=== PATIENT | male | born 1985 | race Caucasian/White ===

== ENCOUNTER 2016-12-07 15:17 | Emergency (ER) | payer MEDICAID, OTHER ==
[2016-12-07 15:26] VITALS: BP 115/74; PULSE 78; RESP 18; TEMP 98.1; O2SAT 100
--- NOTE | 2016-12-07 16:38 | C.PDOC ---
History Of Present Illness The patient, a 31 y/o male, presents to the ED for evaluation of an itchy rash which began around 3 days ago. Patient notes the rash initially started in his bilateral armpits, then spread to his upper extremities. Patient denies presence of rash on bilateral lower extremities. Patient notes he used an aerosol deodorant prior to the development of his symptoms. Patient notes he has used similar aerosol deodorant in the past and experienced a similar rash which self-resolved. Patient notes the rash is now worse than before and presents to the ED for further evaluation. Otherwise, he denies fever, chills, shortness of breath, throat swelling sensation, difficulty swallowing. Time Seen by Provider: 12/07/16 15:52 Chief Complaint (Nursing): Abnormal Skin Integrity History Per: Patient History/Exam Limitations: no limitations Onset/Duration Of Symptoms: Days (3) Current Symptoms Are (Timing): Still Present Location Of Injury: Right: Arm, Left: Arm Quality Of Symptoms: Itching Additional History Per: Patient Past Medical History Reviewed: Historical Data, Nursing Documentation, Vital Signs Vital Signs: Last Vital Signs Temp 98.1 F 12/07/16 15:23 Pulse 78 12/07/16 15:23 Resp 18 12/07/16 17:02 BP 115/74 12/07/16 15:23 Pulse Ox 100 12/07/16 22:42 - Medical History PMH: No Chronic Diseases Surgical History: No Surg Hx Family History: States: Unknown Family Hx - Social History Hx Alcohol Use: No Hx Substance Use: No Review Of Systems Except As Marked, All Systems Reviewed And Found Negative. ENT: Negative for: Throat Swelling Respiratory: Negative for: Shortness of Breath Skin: Positive for: Rash (b/l armpits, b/l upper extremities ) Physical Exam - Physical Exam Appears: Non-toxic, No Acute Distress Skin: Warm, Dry, Rash (erythematous, maculopapular, blanching rash mostly concentrated on axilla and scattered to bilateral anterior upper extremities. mildly concentrated on lateral torso ) Head: Atraumatic, Normacephalic Eye(s): bilateral: Normal Inspection, EOMI Oral Mucosa: Moist Tongue: No Swelling Lips: No Swelling Throat: Normal, No Erythema, No Exudate, No Drooling Neck: Normal ROM, Supple Chest: Symmetrical, No Deformity, No Tenderness Cardiovascular: Rhythm Regular, No Murmur Respiratory: Normal Breath Sounds, No Rales, No Rhonchi, No Wheezing Extremity: Normal ROM, Capillary Refill (less than 2 seconds ) Neurological/Psych: Oriented x3, Normal Speech, Normal Cognition Gait: Steady ED Course And Treatment O2 Sat by Pulse Oximetry: 100 (on RA) Pulse Ox Interpretation: Normal Progress Note: Patient received Benadryl PO and Prednisone PO. On reassessment, pt is resting comfortably, showing no signs of respiratory distress, and reports an improvement in his symptoms. Discussed that aerosol deoderant may possibly be causing the rash and pt was advised to discontinue contact with allergens. Patient is advised to follow up with technical adjuster within 2-5 days for further evaluation. Disposition - Disposition Disposition: HOME/ ROUTINE Disposition Time: 16:38 Condition: STABLE Additional Instructions: Avoid any potential allergens including deodorant spray. Follow up with your primary medical doctor or clinic in 2-5 days for further evaluation. Take medications as prescribed. Return to the emergency department at any time if symptoms persist or worsen. Prescriptions: DiphenhydrAMINE [Benadryl] 25 mg PO Q6 #20 cap predniSONE [Prednisone] 40 mg PO DAILY #8 tab Instructions: Acute Rash (ED) - Clinical Impression Clinical Impression: Rash, Contact dermatitis - PA / [employer] / Resident Statement MD/DO has reviewed & agrees with the documentation as recorded. - Scribe Statement The provider has reviewed the documentation as recorded by the Scribe (Aaliyah Tolentino) All medical record entries made by the Scribe were at my direction and personally dictated by me. I have reviewed the chart and agree that the record accurately reflects my personal performance of the history, physical exam, medical decision making, and the department course for this patient. I have also personally directed, reviewed, and agree with the discharge instructions and disposition.
== END 2016-12-07 17:02 | disposition home or self-care (01) ==
LOC: C.ER 15:17
DX: L25.9 Unspecified contact dermatitis, unspecified cause (principal)